=== PATIENT | female | born 2000 | race Caucasian/White ===

== ENCOUNTER 2020-05-31 22:27 | Emergency (ER) | payer OTHER ==
[~2020-05-31] VITALS: Ht 170.2 cm; Wt 104.3 kg
[~2020-05-31 22:27] MED LIST: ALBUTEROL INHAL17 GM; BENTYL 10 MG CA10 MG PO; CIPROFLOXACIN500 M1 PO; IBUPROFEN 800800 MG PO; NORCO 5-325 TA1 EACH PO; ZPAK PO
[2020-05-31] MEDS ORDERED: MIRENA1 EACH CERVICAL (22:50)
[2020-06-01] MEDS ORDERED: VENTOLIN HFA INH8 GM INH (01:02)
[2020-06-01] MEDS ORDERED: DECADRON4 MG PO (01:02)
[2020-06-01 01:12] VITALS: BP 145/92
== END 2020-06-01 01:12 | disposition home or self-care (01) ==
LOC: ER 22:27
DX: U07.1 COVID-19 (principal); J45.909 Unspecified asthma, uncomplicated; Z79.899 Other long term (current) drug therapy; Z88.8 Allergy status to other drugs, medicaments and biological substances